=== PATIENT | female | born 1955 | race American Indian/Alaskan Native ===

== ENCOUNTER 2018-03-09 11:58 | Outpatient (CLI) | payer MEDICARE ==
--- NOTE | 2018-03-09 14:45 | XRay Report ---
Left shoulder: Pain. Inferior spurs are identified involving the head of the humerus and acetabular margin. The articular surfaces appear otherwise generally smooth. There may be mild narrowing of the joint space. The subacromial space is adequate. No soft tissue calcifications or swelling noted. The bones appear relatively well-mineralized. Impression: Degenerative shoulder joint changes.
== END 2018-03-09 11:59 | disposition home or self-care (01) ==
LOC: SPVIMAG 11:58
PROVIDERS: ATTEND Orthopaedic Surgery
DX: M19.012 Primary osteoarthritis, left shoulder (principal)